=== PATIENT | female | born 1955 | race Caucasian/White ===

== ENCOUNTER 2018-06-18 14:31 | Emergency (ER) | payer OTHER ==
--- NOTE | 2018-06-18 14:52 | EDPHY ---
H & P Stated Complaint: mechanical fall, nose and finger lacerations Source: Patient - Personal History Current Tetanus/Diphtheria Vaccine: No Current Tetanus Diphtheria and Acellular Pertussis (TDAP): No - Medical/Surgical History Hx Asthma: No Hx Chronic Respiratory Disease: No Hx Diabetes: No Hx Cardiac Disease: No Hx Renal Disease: No Hx Cirrhosis: No Hx Alcoholism: No Hx HIV/AIDS: No Hx Splenectomy or Spleen Trauma: No Other PMH: HTN - Social History Smoking Status: Never smoked Time Seen by Provider: 06/18/18 14:52 HPI/ROS: HPI CHIEF COMPLAINT: Mechanical trip and fall. Multiple lacerations. HISTORY OF PRESENT ILLNESS: This is a very pleasant 62-year-old female, she presents emergency room if she had a mechanical trip and fall at work. The patient was carrying a cup drinking of a cup she tripped over a dog. Landing on the concrete floor. The cup went into her nasal bridge. She sustained a nasal bridge laceration and right Nare laceration, also a left index finger laceration. Her tetanus shot is not up-to-date. She denies any other areas of injury. Denies headache or neck pain, denies chest pain or shortness of breath, denies syncope. Denies significant facial pain. This was a broken glass. 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 Exam Constitutional triage nursing summary reviewed, vital signs reviewed, awake/ alert. Eyes normal conjunctivae and sclera, EOMI, PERRLA. HENT FACE: Nasal bridge 2 cm laceration, additionally right Nare: 2CM laceration. normal inspection, atraumatic, moist mucus membranes, no epistaxis, neck supple / no meningismus, no raccoon eyes. Respiratory clear to auscultation bilaterally, normal breath sounds, no respiratory distress, no wheezing. Cardiovascular rate normal, regular rhythm, no murmur, no edema, distal pulses normal. Gastrointestinal soft, non-tender, no rebound, no guarding, normal bowel sounds, no distension, no pulsatile mass. Genitourinary no CVA tenderness. Musculoskeletal no midline vertebral tenderness, full range of motion, no calf swelling, no tenderness of extremities, no meningismus, good pulses, neurovascularly intact. Skin Right Hand Index finger: Dorsal aspect 2 cm laceration. Neurovascular intact otherwise. Good cap refill, tendon intact. No arterial injury. No bony involvement. No evidence of foreign bodies on exam. Neurologic awake, alert and oriented x 3, AAOx3, moves all 4 extremities equally, motor intact, sensory intact, CN II-XII intact, normal cerebellar, normal vision, normal speech. Psychiatric normal mood/affect. Heme/Lymph/Immune no lymphadenopathy. Differential Diagnosis: Includes but is not limited to in a particular order for multiple facial lacerations, finger laceration of left hand, soft tissue injury, need for tetanus shot. Medical Decision Making: Plan for this patient her wounds she states have been copiously irrigated prior to arrival. However will continue to clean her wounds. And then her lacerations will need to be repaired. Tetanus shot will need to be updated. Re-evaluation: (Mohsen Mccord) Constitutional: Initial Vital Signs Temperature (C) 37.1 C 06/18/18 14:34 Heart Rate 68 06/18/18 14:34 Respiratory Rate 16 06/18/18 14:34 Blood Pressure 142/91 H 06/18/18 14:34 O2 Sat (%) 97 06/18/18 14:34 O2 Delivery Mode Room Air Allergies/Adverse Reactions: No Known Allergies Allergy (Unverified 10/31/09 17:47) Home Medications: Medication Instructions Recorded Trileptal 10/31/09 Lisinopril 06/18/18 Medical Decision Making Procedures: Procedure: Laceration repair. Verbal consent was obtained from the patient. The 2.5 cm, superficial, linear, simple laceration on the bridge of the nose was anesthetized in the usual fashion using 1 mL of 1% lidocaine without epinephrine. The wound was irrigated , draped and explored to its base with a gloved finger. There were no deep structures involved. No tendon injury was identified. The wound was repaired with #2, 6 0 Prolene in simple interrupted pattern. Good hemostasis was achieved and patient tolerated procedure well. The procedure was performed by myself. Procedure: Laceration repair. Verbal consent was obtained from the patient. The 2.5 cm, C-shaped, complex, deep laceration on the right nostril was anesthetized in the usual fashion 2 mL of 1% lidocaine without epinephrine. The wound was irrigated, draped and explored to its base with a gloved finger. There were no deep structures involved. No tendon injury was identified. The wound was repaired with #3, 6 0 Prolene. Good hemostasis was achieved and patient tolerated procedure well. The procedure was performed by myself. Procedure: Laceration repair. Verbal consent was obtained from the patient. The 3 cm, deep, linear, simple laceration on the left index finger was anesthetized in the usual fashion using 2 mL of 1% lidocaine without epinephrine. The wound was irrigated, draped and explored to its base with a gloved finger. There were no deep structures involved. No tendon injury was identified. The wound was repaired with #2, 6- 0 Prolene in a simple interrupted pattern. Good hemostasis was achieved and patient tolerated procedure well. The procedure was performed by myself. (Patsy Harry) Departure - Departure Disposition: Home, Routine, Self-Care Clinical Impression: Multiple lacerations Condition: Good Instructions: Care For Your Stitches (ED), Laceration (ED) Additional Instructions: 1. Your sutures in her face need to be removed in 7 days. 2. Warm soapy water is fine but nothing directly in the wound. 3. Your finger laceration sutures need to be removed in 12-14 days. 4. Keep all of her wounds clean, protected. 5. Return emergency room if there is any worsening symptoms questions or concerns. Referrals: NONE *PRIMARY CARE P,. [Primary Care Provider] - As per Instructions
[2018-06-18] MEDS ORDERED: TDAP ADULT 0.5 ML INJ (BOOSTRIX) IM ONE (14:57)
[2018-06-18 15:55] VITALS: BP 143/95
== END 2018-06-18 15:54 | disposition home or self-care (01) ==
DX: S01.81XA Laceration without foreign body of other part of head, initial encounter (principal); S61.211A Laceration without foreign body of left index finger without damage to nail, initial encounter; I10 Essential (primary) hypertension; W01.198A Fall on same level from slipping, tripping and stumbling with subsequent striking against other object, initial encounter; Y99.0 Civilian activity done for income or pay; Z23 Encounter for immunization
CPT/HCPCS: L3925